=== PATIENT | male | born 1950 | race Caucasian/White ===

== ENCOUNTER 2022-08-16 13:40 | Emergency (ER) | payer OTHER ==
[~2022-08-16] VITALS: Ht 180.3 cm; Wt 43.3 kg
[2022-08-16] MEDS ORDERED: HYDROcodone-ACET 10/325MG TAB PO ONE (19:15)
[2022-08-16 19:34] VITALS: BP 170/65
== END 2022-08-16 19:37 | disposition home or self-care (01) ==
LOC: ER 13:40 → EDBD 13:40 → ER 19:37
DX: S60.222A Contusion of left hand, initial encounter (principal); R55 Syncope and collapse; G20 Parkinson's disease; S00.90XA Unspecified superficial injury of unspecified part of head, initial encounter; W18.39XA Other fall on same level, initial encounter; Y93.89 Activity, other specified; Y92.89 Other specified places as the place of occurrence of the external cause; Y99.8 Other external cause status
CPT/HCPCS: 29125; 70450; 72125; 73120